=== PATIENT | female | born 1930 | race Caucasian/White ===

== ENCOUNTER 2018-01-29 07:17 | Day surgery (SDC) | payer MEDICARE, BC ==
[2018-01-27 13:40] VITALS: BMI 30.2
[~2018-01-29 07:17] MED LIST: LACTATED RINGERS 1,000 ML IV SCH; LIDOCAINE 1% 20 ML VIAL (10MG/ML) FOR IV START INTRADERMA PRN
[2018-01-29 07:51] VITALS: RESP 16; TEMP 98
[2018-01-29 07:58] LABS: Glucose,Whole Blood 88 mg/dL (75-99)
[2018-01-29] MEDS ORDERED: LIDOCAINE 1% INJ 10MG/ML (20 ML MDV) ONE (09:14)
[2018-01-29] MEDS ORDERED: PROPOFOL 10 MG/ML 20 ML VIAL IV ONE (09:14)
--- NOTE | 2018-01-29 09:49 | P.PCN ---
Date of Procedure: 01/29/18 Procedure(s) Performed: Procedure: Colonoscopy and polypectomy. Preoperative diagnosis: Rectal bleeding. Postoperative diagnosis: 1. Diffuse diverticulosis with no evidence of acute diverticulitis, strictures or bleeding. 2. Small distal sigmoid polyp snared but no large polyps or cancer. 3. Low-grade internal hemorrhoids likely cause of bleeding, not bleeding at the time of this exam. Preparation: HalfLytely prep. Sedation: Was provided by anesthesia. Brief clinical history: The patient is an 87-year-old female who is scheduled for this evaluation because of history of intermittent rectal bleeding. The patient, apparently, had no prior colonoscopy. This evaluation is to assess for neoplasia or other pathology. Procedure: With the patient on her left lateral decubitus position and after informed consent and adequate sedation, the perianal area was inspected and it did not show any fissures or fistulas. There were no masses felt on digital rectal examination. The Olympus CFQ 160L video colonoscope was then inserted in the rectum in the usual fashion and advanced to the cecum. There were multiple diverticular orifices seen scattered along the length of the bowel with no evidence of acute diverticulitis or strictures. No evidence of bleeding. The mucosa appeared healthy. There was a small polyp in the distal sigmoid which I snared and retrieved by suction but there were no large polyps or cancer. I retroflexed the endoscope in the rectum before the endoscope was withdrawn. Low-grade internal hemorrhoids were noted with no evidence of bleeding. The patient tolerated the procedure well. Plan: The patient was reassured. Discussed dietary measures and local care for hemorrhoids. Further plans can be made based on her course. She will follow- up with you as planned and I will be happy to see in the office of her symptoms persist.
[2018-01-29 10:30] VITALS: BP 148/74; PULSE 70
== END 2018-01-29 11:07 | disposition home or self-care (01) ==
LOC: ORWHC2ENDO 07:17
DX: K62.5 Hemorrhage of anus and rectum (principal); D12.5 Benign neoplasm of sigmoid colon; K57.30 Diverticulosis of large intestine without perforation or abscess without bleeding; K64.8 Other hemorrhoids; I11.0 Hypertensive heart disease with heart failure; I50.9 Heart failure, unspecified; I25.10 Atherosclerotic heart disease of native coronary artery without angina pectoris; E78.5 Hyperlipidemia, unspecified; J45.909 Unspecified asthma, uncomplicated; M19.90 Unspecified osteoarthritis, unspecified site; I89.0 Lymphedema, not elsewhere classified; Z91.018 Allergy to other foods; Z79.891 Long term (current) use of opiate analgesic; Z79.4 Long term (current) use of insulin; Z79.51 Long term (current) use of inhaled steroids; Z79.02 Long term (current) use of antithrombotics/antiplatelets; Z79.899 Other long term (current) drug therapy; Z86.718 Personal history of other venous thrombosis and embolism; Z95.0 Presence of cardiac pacemaker
CPT/HCPCS: 88305; 45385; J2001; J2704

== ENCOUNTER 2019-02-08 20:39 | Emergency (ER) | payer MEDICARE, BC ==
[2019-02-08 20:51] VITALS: TEMP 98.2
--- NOTE | 2019-02-08 21:29 | ED ---
Abdominal Pain HPI - General Chief Complaint: Abdominal Pain Stated Complaint: ABd Pain Time Seen by Provider: 02/08/19 20:58 Source: patient, family Mode of arrival: wheelchair Limitations: physical limitation - History of Present Illness Initial Comments: This patient is an 88-year-old woman who presents to be evaluated for abdominal pain and vomiting. Patient states that she was in her usual state of health until around the time she had her lunch time meal. She states at that time after eating she experienced onset of bloating and cramping of the abdomen. She indicates diffusely. She states the pain is somewhat intermittent, coming and going. She is not able to state exactly how long its there are however long in between. Patient states that following her evening meal the symptoms intensified somewhat and then she had the onset of nausea and then vomited approximately 4 times. She did not note any blood or coffee-ground material. The patient states that her last bowel movement was yesterday and was normal for her. No change in urination. The patient has not noted worsening or relieving symptoms. No other associated symptoms. MD Complaint: abdominal pain Onset/Timin -: hour(s) Location: diffuse Radiation: none Migration to: no migration Severity: moderate Quality: cramping, fullness, other (Bloating) Consistency: intermittent Improves With: nothing Worsens With: nothing Associated Symptoms: nausea, vomiting - Related Data Home Medications Medication Instructions Recorded Confirmed Acetaminophen-Codeine 300-30mg 1 tab PO Q12H PRN 03/29/15 02/08/19 [Tylenol w/codeine #3] Ammonium Lactate Cream [Lac-Hydrin 1 applic TOPICAL BID PRN 03/29/15 02/08/19 12% Cream] Atorvastatin [Lipitor] 10 mg PO HS 03/29/15 02/08/19 Clopidogrel [Plavix] 75 mg PO DAILY 03/29/15 02/08/19 Docusate [Colace] 200 mg PO DAILY PRN 03/29/15 02/08/19 Furosemide [Lasix] 20 mg PO DAILY 03/29/15 02/08/19 Insulin Aspart Protam & Aspart 6 unit SQ AC-SUPPER 03/29/15 02/08/19 [NovoLOG MIX 70-30 Flexpen] Insulin Aspart Protam & Aspart 8 unit SQ AC-BRKFST 03/29/15 02/08/19 [NovoLOG MIX 70-30 Flexpen] Lisinopril [Zestril] 5 mg PO DAILY 03/29/15 02/08/19 [place]-3 Fatty Acids/Fish Oil [Fish 3 cap PO DAILY 03/29/15 02/08/19 Oil 1,000 mg Softgel] Psyllium Husk 100% [Metamucil 6 gm PO DAILY PRN 03/29/15 02/08/19 Packet] Sodium Chloride 5% Ophth Oint 1 applic BOTH EYES HS 03/29/15 02/08/19 [José Luis 128] Timolol 0.5% Ophth Soln [Timoptic 1 drop BOTH EYES QAM 03/29/15 02/08/19 0.5% Ophth Soln] Mometasone Inhalr 220 Mcg/Puff 1 puff INHALATION RT-BID 04/13/17 02/08/19 [Asmanex] Aspirin EC [Ecotrin Low Dose] 162 mg PO DAILY 02/08/19 02/08/19 Cyanocobalamin (Vitamin B-12) 1,000 mcg PO MOTUWETHFR 02/08/19 02/08/19 [Vitamin B-12] Ketotifen Fumarate [Alaway] 1 drop BOTH EYES DAILY PRN 02/08/19 02/08/19 Nitroglycerin Sl Tabs [Nitrostat] 0.4 mg SUBLINGUAL Q5M PRN 02/08/19 02/08/19 Polyethylene Glycol 3350 [Miralax] 17 gm PO HS PRN 02/08/19 02/08/19 Protega Supplement 1 tab PO DAILY 02/08/19 02/08/19 Simethicone [Phazyme] 250 mg PO HS PRN 02/08/19 02/08/19 Sodium Chloride 5% Ophth Soln 1 drops BOTH EYES TID 02/08/19 02/08/19 [José Luis 128] Trospium Chloride 20 mg PO BID 02/08/19 02/08/19 Previous Rx's Medication Instructions Recorded Sulfamethox-Tmp 800-160Mg [Bactrim 1 each PO Q12HR #10 tab 02/09/19 Ds] Allergies Allergy/AdvReac Type Severity Reaction Status Date / Time Mushroom AdvReac Abdominal Verified 02/08/19 22:49 Pain Review of Systems ROS Statement: Those systems with pertinent positive or pertinent negative responses have been documented in the HPI. ROS Other: All systems not noted in ROS Statement are negative. Constitutional: Denies: fever Respiratory: Denies: cough, dyspnea Cardiovascular: Denies: chest pain, palpitations, orthopnea, syncope Gastrointestinal: Reports: as per HPI, abdominal pain, nausea, vomiting. Denies: diarrhea, constipation, hematemesis, melena, hematochezia Genitourinary: Denies: dysuria, hematuria Musculoskeletal: Denies: back pain Skin: Denies: rash Neurological: Denies: headache Past Medical History Past Medical History: Asthma, Cancer, Chest Pain / Angina, Heart Failure, Diabetes Mellitus, GI Bleed, Hearing Disorder / Deafness, Hyperlipidemia, Hypertension, Osteoarthritis (OA) Additional Past Medical History / Comment(s): Lymphedema; rectal bleeding g laucoma, History of Any Multi-Drug Resistant Organisms: None Reported Past Surgical History: Appendectomy, Hysterectomy Additional Past Surgical History / Comment(s): D&C; CARPAL TUNNEL RELEASE, BEBETO CATARACTS;, LT SHOULDER REPAIR. Ankle FX repair, Past Anesthesia/Blood Transfusion Reactions: No Reported Reaction Past Psychological History: No Psychological Hx Reported Smoking Status: Former smoker Past Alcohol Use History: None Reported Past Drug Use History: None Reported - Past Family History Father Family Medical History: Deep Vein Thrombosis (DVT), Pneumonia Mother Family Medical History: Congestive Heart Failure (CHF), GI Bleed General Exam Limitations: physical limitation General appearance: alert, in no apparent distress Head exam: Present: atraumatic, normocephalic Eye exam: Present: normal appearance. Absent: scleral icterus, conjunctival injection Respiratory exam: Present: normal lung sounds bilaterally. Absent: respiratory distress, wheezes, rales, rhonchi, stridor Cardiovascular Exam: Present: regular rate, irregular rhythm, normal heart sounds. Absent: systolic murmur, diastolic murmur, rubs, gallop GI/Abdominal exam: Present: soft, distended, hypoactive bowel sounds. Absent: tenderness, guarding, rebound, rigid, mass, pulsatile mass, hernia Extremities exam: Present: normal inspection, normal capillary refill. Absent: pedal edema, calf tenderness Back exam: Present: normal inspection. Absent: CVA tenderness (R), CVA tenderness (L) Neurological exam: Present: alert Skin exam: Present: warm, dry, intact, normal color. Absent: rash Course Vital Signs 02/08/19 20:46 Temperature 98.2 F Pulse Rate 89 Respiratory 17 Rate Blood Pressure 123/66 O2 Sat by Pulse 94 L Oximetry Medical Decision Making - Lab Data Result diagrams: 02/08/19 21:50 02/08/19 21:50 Lab Results 02/08/19 02/08/19 02/08/19 Range/Units 21:50 21:50 21:50 WBC 12.2 H (3.8-10.6) k/uL RBC 4.92 (3.80-5.40) m/uL Hgb 14.5 (11.4-16.0) gm/dL Hct 44.5 (34.0-46.0) % MCV 90.6 (80.0-100.0) fL MCH 29.4 (25.0-35.0) pg MCHC 32.5 (31.0-37.0) g/dL RDW 13.7 (11.5-15.5) % Plt Count 187 (150-450) k/uL Neutrophils % 84 % Lymphocytes % 9 % Monocytes % 3 % Eosinophils % 2 % Basophils % 0 % Neutrophils # 10.3 H (1.3-7.7) k/uL Lymphocytes # 1.1 (1.0-4.8) k/uL Monocytes # 0.4 (0-1.0) k/uL Eosinophils # 0.2 (0-0.7) k/uL Basophils # 0.0 (0-0.2) k/uL Sodium 141 (137-145) mmol/L Potassium 4.9 (3.5-5.1) mmol/L Chloride 101 (98-107) mmol/L Carbon Dioxide 28 (22-30) mmol/L Anion Gap 12 mmol/L BUN 38 H (7-17) mg/dL Creatinine 0.86 (0.52-1.04) mg/dL Est GFR (CKD-EPI)AfAm 70 (>60 ml/min/1.73 sqM) Est GFR (CKD-EPI)NonAf 61 (>60 ml/min/1.73 sqM) Glucose 170 H (74-99) mg/dL Plasma Lactic Acid Hermes 1.1 (0.7-2.0) mmol/L Calcium 10.3 H (8.4-10.2) mg/dL Total Bilirubin 0.7 (0.2-1.3) mg/dL AST 28 (14-36) U/L ALT 16 (9-52) U/L Alkaline Phosphatase 89 (38-126) U/L Total Protein 7.8 (6.3-8.2) g/dL Albumin 4.6 (3.5-5.0) g/dL Amylase 59 (30-110) U/L Lipase 72 (23-300) U/L Urine Color Urine Appearance (Clear) Urine pH (5.0-8.0) Ur Specific [place] (1.001-1.035) Urine Protein (Negative) Urine Glucose (UA) (Negative) Urine Ketones (Negative) Urine Blood (Negative) Urine Nitrite (Negative) Urine Bilirubin (Negative) Urine Urobilinogen (<2.0) mg/dL Ur Leukocyte Esterase (Negative) Urine RBC (0-5) /hpf Urine WBC (0-5) /hpf Urine Bacteria (None) /hpf Urine Mucus (None) /hpf 02/08/19 Range/Units 23:22 WBC (3.8-10.6) k/uL RBC (3.80-5.40) m/uL Hgb (11.4-16.0) gm/dL Hct (34.0-46.0) % MCV (80.0-100.0) fL MCH (25.0-35.0) pg MCHC (31.0-37.0) g/dL RDW (11.5-15.5) % Plt Count (150-450) k/uL Neutrophils % % Lymphocytes % % Monocytes % % Eosinophils % % Basophils % % Neutrophils # (1.3-7.7) k/uL Lymphocytes # (1.0-4.8) k/uL Monocytes # (0-1.0) k/uL Eosinophils # (0-0.7) k/uL Basophils # (0-0.2) k/uL Sodium (137-145) mmol/L Potassium (3.5-5.1) mmol/L Chloride (98-107) mmol/L Carbon Dioxide (22-30) mmol/L Anion Gap mmol/L BUN (7-17) mg/dL Creatinine (0.52-1.04) mg/dL Est GFR (CKD-EPI)AfAm (>60 ml/min/1.73 sqM) Est GFR (CKD-EPI)NonAf (>60 ml/min/1.73 sqM) Glucose (74-99) mg/dL Plasma Lactic Acid Hermes (0.7-2.0) mmol/L Calcium (8.4-10.2) mg/dL Total Bilirubin (0.2-1.3) mg/dL AST (14-36) U/L ALT (9-52) U/L Alkaline Phosphatase (38-126) U/L Total Protein (6.3-8.2) g/dL Albumin (3.5-5.0) g/dL Amylase (30-110) U/L Lipase (23-300) U/L Urine Color Yellow Urine Appearance Cloudy H (Clear) Urine pH 5.5 (5.0-8.0) Ur Specific [place] 1.021 (1.001-1.035) Urine Protein Trace H (Negative) Urine Glucose (UA) Negative (Negative) Urine Ketones Trace H (Negative) Urine Blood Negative (Negative) Urine Nitrite Negative (Negative) Urine Bilirubin Negative (Negative) Urine Urobilinogen <2.0 (<2.0) mg/dL Ur Leukocyte Esterase Large H (Negative) Urine RBC 6 H (0-5) /hpf Urine WBC >182 H (0-5) /hpf Urine Bacteria Many H (None) /hpf Urine Mucus Many H (None) /hpf - EKG Data -: EKG Interpreted by Mo EKG shows normal: axis (Normal), intervals (Normal), QRS complexes (Normal) Interpretation: nonspecific ST-T wave changes, other (Atrial fibrillation with rate approximately 87 bpm) Disposition Clinical Impression: Ileus, Constipation, Urinary tract infection Disposition: HOME SELF-CARE Condition: Fair Instructions (If sedation given, give patient instructions): Ileus (ED), Urinary Tract Infection in Women (ED) Prescriptions: Sulfamethox-Tmp 800-160Mg [Bactrim Ds] 1 each PO Q12HR #10 tab Is patient prescribed a controlled substance at d/c from ED?: No Referrals: London Guzman MD [Primary Care Provider] - 1-2 days
[2019-02-08 22:08] LABS: Basophils % (A) 0 %; Eosinophils # (A) 0.2 k/uL (0-0.7); Eosinophils % (A) 2 %; HCT 44.5 % (34.0-46.0); HGB 14.5 gm/dL (11.4-16.0); Lymphocytes # (A) 1.1 k/uL (1.0-4.8); Lymphocytes % (A) 9 %; MCH 29.4 pg (25.0-35.0); MCHC 32.5 g/dL (31.0-37.0); MCV 90.6 fL (80.0-100.0); Mean Platelet Volume 7.4; Monocytes # (A) 0.4 k/uL (0-1.0); Monocytes % (A) 3 %; Neutrophils # (A) 10.3 k/uL (1.3-7.7); Neutrophils % (A) 84 %; Platelet Count 187 k/uL (150-450); RBC 4.92 m/uL (3.80-5.40); RDW 13.7 % (11.5-15.5); WBC 12.2 k/uL (3.8-10.6)
[2019-02-08 22:18] LABS: Albumin 4.6 g/dL (3.5-5.0); Calcium 10.3 mg/dL (8.4-10.2); Potassium 4.9 mmol/L (3.5-5.1); Total Bilirubin 0.7 mg/dL (0.2-1.3); Total Protein 7.8 g/dL (6.3-8.2)
--- NOTE | 2019-02-08 23:14 | CT ---
EXAM: CT Abdomen and Pelvis Without Intravenous Contrast CLINICAL HISTORY: ITS.REASON CT Reason: abdominal pain TECHNIQUE: Axial computed tomography images of the abdomen and pelvis without intravenous contrast. CTDI is 14.6 mGy and DLP is 813.3 mGy-cm. This CT exam was performed using one or more of the following dose reduction techniques: automated exposure control, adjustment of the mA and/or kV according to patient size, and/or use of iterative reconstruction technique. COMPARISON: No relevant prior studies available. FINDINGS: Lung bases: Unremarkable. No mass. No consolidation. Heart: Mild cardiomegaly with coronary artery calcifications. ABDOMEN: Liver: Unremarkable. Gallbladder and bile ducts: Cholelithiasis. No ductal dilation. Pancreas: Unremarkable. No ductal dilation. Spleen: Unremarkable. No splenomegaly. Adrenals: Unremarkable. No mass. Kidneys and ureters: Unremarkable. No obstructing stones. No hydronephrosis. Stomach and bowel: Moderate gastric distention. Mildly dilated fluid- filled loops of small bowel with gas and stool noted throughout the colon. Sigmoid diverticulosis. Large amount of retained stool throughout the colon. No mucosal thickening. PELVIS: Appendix: No findings to suggest acute appendicitis. Bladder: Unremarkable. No stones. Reproductive: Unremarkable as visualized. ABDOMEN and PELVIS: Intraperitoneal space: Unremarkable. No free air. No significant fluid collection. Bones/joints: No acute fracture. No dislocation. Severe multilevel lumbar spondylosis Soft tissues: Unremarkable. Vasculature: Unremarkable. No abdominal aortic aneurysm. Lymph nodes: Unremarkable. No enlarged lymph nodes. IMPRESSION: Dilated loops of small bowel with associated air-fluid levels and gas and stool throughout the colon. Consider a partial obstructive process or ileus/enteritis. Moderate amount of retained stool throughout the colon. Sigmoid diverticulosis. Cholelithiasis.
[2019-02-08 23:36] LABS: Appearance,Urine Cloudy (Clear); Bacteria,Urine Many /hpf; Bilirubin,Urine Negative (Negative); Blood,Urine Negative (Negative); Color,Urine Yellow; Glucose,Urine (UA) Negative (Negative); Ketones,Urine Trace (Negative); Leukocyte Esterase,Urine Large (Negative); Mucus,Urine Many /hpf; Nitrite,Urine Negative (Negative); PH, Urine 5.5 (5.0-8.0); Protein,Urine Trace (Negative); RBC,Urine 6 /hpf (0-5); Specific Gravity,Urine 1.021 (1.001-1.035); Urobilinogen,Urine <2.0 mg/dL (<2.0); WBC,Urine >182 /hpf (0-5)
[2019-02-09] MEDS ORDERED: SULFAMETHOX-TMP 800-160MG 1 EACH TAB PO STA (00:04)
[2019-02-09 01:34] VITALS: BP 149/85; PULSE 99; RESP 18
== END 2019-02-09 01:15 | disposition home or self-care (01) ==
LOC: EC 20:39
DX: K56.7 Ileus, unspecified (principal); K59.00 Constipation, unspecified; N39.0 Urinary tract infection, site not specified; J45.909 Unspecified asthma, uncomplicated; I11.0 Hypertensive heart disease with heart failure; E11.9 Type 2 diabetes mellitus without complications; E78.5 Hyperlipidemia, unspecified; I10 Essential (primary) hypertension; H91.90 Unspecified hearing loss, unspecified ear; Z87.891 Personal history of nicotine dependence; Z79.899 Other long term (current) drug therapy; Z79.4 Long term (current) use of insulin; Z79.02 Long term (current) use of antithrombotics/antiplatelets; Z79.82 Long term (current) use of aspirin; Z91.018 Allergy to other foods; Z98.42 Cataract extraction status, left eye; Z98.41 Cataract extraction status, right eye
CPT/HCPCS: 36415; 74176; 80053; 81001; 82150; 83605; 83690; 85025; 93005; 99284

== ENCOUNTER 2020-01-01 11:53 | Emergency (ER) | payer MEDICARE, BC ==
[2020-01-01] MEDS ORDERED: GELATIN SPONGE,ABSORB (LARGE) 1 EACH SPONGE TOPICAL STA (12:25)
[2020-01-01 12:30] VITALS: BP 104/65; PULSE 75; RESP 18; TEMP 98.7
--- NOTE | 2020-01-01 12:34 | ED ---
Wound/Laceration HPI - General Stated Complaint: Wound on buttocks Time Seen by Provider: 01/01/20 12:09 Source: patient, RN notes reviewed Mode of arrival: ambulatory Limitations: no limitations - History of Present Illness Initial Comments: This an 89-year-old female presents emergency department with chief complaint a wound on her left buttocks. Patient has been being treated by Dr. Castro for this wound. Patient has been being treated for last several months. Patient have been applying duoderm and applying hydroperoxide to the area as directed. states that they want to change covering today and it started bleeding. Patient is 9 blood thinners or fevers or chills. Patient states it's minimally painful. Patient does not have a follow-up appointment until 3 months from now. - Related Data Home Medications Medication Instructions Recorded Confirmed Acetaminophen-Codeine 300-30mg 1 tab PO Q12H PRN 03/29/15 02/08/19 [Tylenol w/codeine #3] Ammonium Lactate Cream [Lac-Hydrin 1 applic TOPICAL BID PRN 03/29/15 02/08/19 12% Cream] Atorvastatin [Lipitor] 10 mg PO HS 03/29/15 02/08/19 Clopidogrel [Plavix] 75 mg PO DAILY 03/29/15 02/08/19 Docusate [Colace] 200 mg PO DAILY PRN 03/29/15 02/08/19 Furosemide [Lasix] 20 mg PO DAILY 03/29/15 02/08/19 Insulin Aspart Protam & Aspart 6 unit SQ AC-SUPPER 03/29/15 02/08/19 [NovoLOG MIX 70-30 Flexpen] Insulin Aspart Protam & Aspart 8 unit SQ AC-BRKFST 03/29/15 02/08/19 [NovoLOG MIX 70-30 Flexpen] Lisinopril [Zestril] 5 mg PO DAILY 03/29/15 02/08/19 [place]-3 Fatty Acids/Fish Oil [Fish 3 cap PO DAILY 03/29/15 02/08/19 Oil 1,000 mg Softgel] Psyllium Husk 100% [Metamucil 6 gm PO DAILY PRN 03/29/15 02/08/19 Packet] Sodium Chloride 5% Ophth Oint 1 applic BOTH EYES HS 03/29/15 02/08/19 [José Luis 128] Timolol 0.5% Ophth Soln [Timoptic 1 drop BOTH EYES QAM 03/29/15 02/08/19 0.5% Ophth Soln] Mometasone Inhalr 220 Mcg/Puff 1 puff INHALATION RT-BID 04/13/17 02/08/19 [Asmanex] Aspirin EC [Ecotrin Low Dose] 162 mg PO DAILY 02/08/19 02/08/19 Cyanocobalamin (Vitamin B-12) 1,000 mcg PO MOTUWETHFR 02/08/19 02/08/19 [Vitamin B-12] Ketotifen Fumarate [Alaway] 1 drop BOTH EYES DAILY PRN 02/08/19 02/08/19 Nitroglycerin Sl Tabs [Nitrostat] 0.4 mg SUBLINGUAL Q5M PRN 02/08/19 02/08/19 Polyethylene Glycol 3350 [Miralax] 17 gm PO HS PRN 02/08/19 02/08/19 Protega Supplement 1 tab PO DAILY 02/08/19 02/08/19 Simethicone [Phazyme] 250 mg PO HS PRN 02/08/19 02/08/19 Sodium Chloride 5% Ophth Soln 1 drops BOTH EYES TID 02/08/19 02/08/19 [José Luis 128] Trospium Chloride 20 mg PO BID 02/08/19 02/08/19 Previous Rx's Medication Instructions Recorded Sulfamethox-Tmp 800-160Mg [Bactrim 1 each PO Q12HR #10 tab 02/09/19 Ds] Cephalexin [Keflex] 500 mg PO Q6HR #40 cap 01/01/20 Allergies Allergy/AdvReac Type Severity Reaction Status Date / Time Mushroom AdvReac Abdominal Verified 02/08/19 22:49 Pain Review of Systems ROS Statement: Those systems with pertinent positive or pertinent negative responses have been documented in the HPI. ROS Other: All systems not noted in ROS Statement are negative. Past Medical History Past Medical History: Asthma, Cancer, Chest Pain / Angina, Heart Failure, Diabetes Mellitus, GI Bleed, Hearing Disorder / Deafness, Hyperlipidemia, Hypertension, Osteoarthritis (OA) Additional Past Medical History / Comment(s): Lymphedema; rectal bleeding glaucoma, History of Any Multi-Drug Resistant Organisms: None Reported Past Surgical History: Appendectomy, Hysterectomy Additional Past Surgical History / Comment(s): D&C; CARPAL TUNNEL RELEASE, BEBETO CATARACTS;, LT SHOULDER REPAIR. Ankle FX repair, Past Anesthesia/Blood Transfusion Reactions: No Reported Reaction Past Psychological History: No Psychological Hx Reported Smoking Status: Former smoker Past Alcohol Use History: None Reported Past Drug Use History: None Reported - Past Family History Father Family Medical History: Deep Vein Thrombosis (DVT), Pneumonia Mother Family Medical History: Congestive Heart Failure (CHF), GI Bleed General Exam Limitations: no limitations General appearance: alert, in no apparent distress Head exam: Present: atraumatic, normocephalic, normal inspection Respiratory exam: Present: normal lung sounds bilaterally. Absent: respiratory distress, wheezes, rales, rhonchi, stridor Cardiovascular Exam: Present: regular rate, normal rhythm, normal heart sounds. Absent: systolic murmur, diastolic murmur, rubs, gallop, clicks Skin exam: Present: warm, dry, other (Left buttocks there is open wound/sore noted there is some skin breakdown surrounding the area there is moderate amount of erythema and there is a small skin tear noted) Medical Decision Making - Medical Decision Making Patient had Gelfoam applied to the area over the skin tear. Bleeding is control led. Patient does have an open wound isn't clear what the original cause of this was though there is concerns for mild infection. She'll be placed on antibiotics and will follow-up with PCP and dermatology who has been following her on Friday. Patient and family agree. Disposition Clinical Impression: Open wound of buttock, Skin tear Disposition: HOME SELF-CARE Condition: Stable Instructions (If sedation given, give patient instructions): Acute Wound Care (ED) Additional Instructions: Please return to the Emergency Department if symptoms worsen or any other concerns. Prescriptions: Cephalexin [Keflex] 500 mg PO Q6HR #40 cap Is patient prescribed a controlled substance at d/c from ED?: No Referrals: London Guzman MD [Primary Care Provider] - 1-2 days Time of Disposition: 12:33
== END 2020-01-01 13:36 | disposition home or self-care (01) ==
LOC: EC 11:53
DX: S31.821A Laceration without foreign body of left buttock, initial encounter (principal); J45.909 Unspecified asthma, uncomplicated; I11.0 Hypertensive heart disease with heart failure; I50.9 Heart failure, unspecified; E11.9 Type 2 diabetes mellitus without complications; E78.5 Hyperlipidemia, unspecified; H40.9 Unspecified glaucoma; Z79.02 Long term (current) use of antithrombotics/antiplatelets; Z79.82 Long term (current) use of aspirin; Z79.51 Long term (current) use of inhaled steroids; Z79.899 Other long term (current) drug therapy; Z79.4 Long term (current) use of insulin; Z79.01 Long term (current) use of anticoagulants; Z87.891 Personal history of nicotine dependence; Z91.018 Allergy to other foods; X58.XXXA Exposure to other specified factors, initial encounter
CPT/HCPCS: 99283